=== PATIENT | female | born 1990 | race Caucasian/White ===

== ENCOUNTER 2023-11-09 16:07 | Emergency (ER) | payer OTHER ==
[~2023-11-09] VITALS: Ht 167.6 cm; Wt 78.0 kg
[2023-11-09 16:13] VITALS: O2SAT 98
[2023-11-09] MEDS: ACETAMINOPHEN 325MG TABLET PO ONE ×2 (17:18→22:14)
[2023-11-09] MEDS ORDERED: TETANUS, DIPHTHERIA, PERTUSSIS VAC/PF 0.5ML (>10YR OLD) IM ONE (18:45)
[2023-11-09] MEDS ORDERED: LIDOCAINE HCL/PF 1% 10 MG/ML 5ML VIAL INFIL ONE (20:30)
[2023-11-09] MEDS: TETANUS, DIPHTHERIA, PERTUSSIS VAC/PF 0.5ML (>10YR OLD) IM ONE (22:15)
[2023-11-09] MEDS: BACITRACIN ZINC OINT UDPKT TOP ONE (22:15)
[2023-11-09] MEDS: LIDOCAINE HCL/PF 1% 10 MG/ML 5ML VIAL INFIL NR (22:27)
[2023-11-10] MEDS ORDERED: IBUP-2029 MT (02:23)
[2023-11-10 13:06] VITALS: BP 118/83; PULSE 96; RESP 16; TEMP 98.2
== END 2023-11-10 13:15 | disposition home or self-care (01) ==
LOC: ER 16:07
DX: S00.83XA Contusion of other part of head, initial encounter (principal); I10 Essential (primary) hypertension; Y04.0XXA Assault by unarmed brawl or fight, initial encounter; Y93.89 Activity, other specified; Y92.89 Other specified places as the place of occurrence of the external cause; Y99.8 Other external cause status
CPT/HCPCS: 70450; 70486; 90715; 90471; 99285; J3490; Z7610 ×2

== ENCOUNTER 2024-04-12 03:15 | Emergency (ER) | payer OTHER ==
[~2024-04-12] VITALS: Ht 167.6 cm; Wt 84.6 kg
[~2024-04-12 03:15] MED LIST: IBUP-2029 MT
[2024-04-12 03:19] VITALS: O2SAT 100
[2024-04-12 03:45] VITALS: BP 165/109; TEMP 97.8
[2024-04-12] MEDS: DEXAMETHASONE 10 MG/ML VIAL PO ONE (04:00)
[2024-04-12] MEDS: IPRATROPIUM/ALBUTEROL 0.5-3(2.5)MG/3ML NEB HHN ONE ×2 (04:00→05:19)
[2024-04-12 04:09] LABS: BASOPHILS % 0.8 % (0.0-2.0); EOSINOPHILS % 6.4 % (0.0-5.0); HEMATOCRIT. 39.3 % (36.0-48.0); HEMOGLOBIN. 13.1 g/dL (12.0-16.0); LYMPHOCYTES % 22.9 % (20.0-50.0); MEAN CORPUSCULAR HEMOGLOBIN 31.8 pg (28.0-32.0); MEAN CORPUSCULAR HGB CONC 33.3 g/dL (31.0-37.0); MEAN CORPUSCULAR VOLUME 95.4 fL (81.0-99.0); MEAN PLATELET VOLUME 8.2 fl (7.4-10.4); MONOCYTES % 6.4 % (2.0-8.0); NEUTROPHILS % 63.5 % (40.0-76.0); PLATELET 262 x1000/uL (130-400); RED BLOOD CELL COUNT 4.11 mill/uL (4.2-5.4); RED CELL DISTRIBUTION WIDTH 14.2 % (11.6-14.6); WHITE BLOOD COUNT 7.8 x1000/uL (4.5-11.0)
[2024-04-12 04:15] VITALS: PULSE 80; RESP 20; O2SAT 99
[2024-04-12 04:15] LABS: CARBON DIOXIDE 25 mEq/L (21-32); CHLORIDE 106 mEq/L (98-107); POTASSIUM 2.9 mEq/L (3.5-5.1); SODIUM 141 mEq/L (136-145)
[2024-04-12 04:16] LABS: CALCIUM 9.6 mg/dL (8.7-10.4)
[2024-04-12 04:21] LABS: CREATININE 0.8 mg/dL (0.6-1.0); GLUCOSE 93 mg/dL (70-105); UREA NITROGEN BLOOD 10 mg/dL (9-23)
[2024-04-12 05:20] VITALS: PULSE 77; RESP 19; O2SAT 100
[2024-04-12] MEDS: POTASSIUM CHLORIDE 20MEQ/PACKET PO ONE (06:09)
== END 2024-04-12 06:13 | disposition home or self-care (01) ==
LOC: ER 03:35
DX: J45.901 Unspecified asthma with (acute) exacerbation (principal)
CPT/HCPCS: 80048; 85025; 36415; 94640; 99285; J1100; Z7610 ×3

== ENCOUNTER 2025-01-27 02:22 | Emergency (ER) | payer OTHER ==
[~2025-01-27] VITALS: Ht 165.1 cm; Wt 85.0 kg
[~2025-01-27 02:22] MED LIST changes: +IBUP-1455 MT; -IBUP-2029 MT
[2025-01-27 02:25] VITALS: O2SAT 97
[2025-01-27 02:30] VITALS: BP 162/96; TEMP 36.9
[2025-01-27] MEDS ORDERED: METHYLPREDNISOLONE SOD SUCC 125MG/2ML (ACT-O-VIAL) IM ONE (03:00)
[2025-01-27 03:11] VITALS: PULSE 76; RESP 18; O2SAT 96
[2025-01-27] MEDS: ALBUTEROL (0.083%) 2.5MG/3ML NEB HHN ONE (03:11)
== END 2025-01-27 04:00 | disposition left against medical advice (07) ==
LOC: ER 02:22
DX: J45.901 Unspecified asthma with (acute) exacerbation (principal)
CPT/HCPCS: 81025; 94640; 99283; Z7610 ×3; 94070; 94664; 98960; J2919